=== PATIENT | female | born 1960 | race Caucasian/White ===

== ENCOUNTER 2021-07-26 13:17 | Outpatient (RCR) | payer MEDICARE | END 2021-08-07 | LOC: WCC 13:17 | PROVIDERS: ATTEND Family Medicine Adult Medicine | DX: E11.621 Type 2 diabetes mellitus with foot ulcer (principal); E11.42 Type 2 diabetes mellitus with diabetic polyneuropathy; E11.628 Type 2 diabetes mellitus with other skin complications; L97.511 Non-pressure chronic ulcer of other part of right foot limited to breakdown of skin; L03.031 Cellulitis of right toe; B96.89 Other specified bacterial agents as the cause of diseases classified elsewhere; R60.0 Localized edema; I79.8 Other disorders of arteries, arterioles and capillaries in diseases classified elsewhere; L84 Corns and callosities; I10 Essential (primary) hypertension; I21.9 Acute myocardial infarction, unspecified; I69.998 Other sequelae following unspecified cerebrovascular disease; K21.9 Gastro-esophageal reflux disease without esophagitis; E78.2 Mixed hyperlipidemia; I11.0 Hypertensive heart disease with heart failure; I25.10 Atherosclerotic heart disease of native coronary artery without angina pectoris; E78.01 Familial hypercholesterolemia; I50.22 Chronic systolic (congestive) heart failure; D64.9 Anemia, unspecified; E66.3 Overweight | CPT/HCPCS: 36415; 82948; 87071; 87075; 87205 ==

== ENCOUNTER → 2022-02-15 | Outpatient (CLI) | payer MEDICARE | LOC: RAD 15:50 | PROVIDERS: ATTEND Podiatrist | DX: E11.621 Type 2 diabetes mellitus with foot ulcer (principal); L97.518 Non-pressure chronic ulcer of other part of right foot with other specified severity ==

== ENCOUNTER 2022-02-20 14:46 | Outpatient (RCR) | payer MEDICARE ==
[2022-02-15 16:58] LABS: BASOPHILS % 0.5 % (0.0-1.0); EOSINOPHILS # (AUTO) 0.2 (0.0-0.4); EOSINOPHILS % 2.1 % (0.0-6.0); HEMATOCRIT 40.5 % (34.2-44.1); HEMOGLOBIN 13.1 g/dL (12.0-16.0); LYMPHOCYTES # (AUTO) 1.3 (1.0-3.2); LYMPHOCYTES % 15.8 % (18.0-39.1); MEAN CORPUSCULAR HEMOGLOBIN 31.2 pg (28-32); MEAN CORPUSCULAR HGB CONC 32.3 g/dL (31-35); MEAN CORPUSCULAR VOLUME 96.4 fL (81-99); MONOCYTES # (AUTO) 0.5 (0.2-0.8); MONOCYTES % 6.4 % (4.4-11.3); NEUTROPHILS # (AUTO) 5.9 (2.1-6.9); NEUTROPHILS % 74.8 % (38.7-80.0); PLATELET COUNT 239 x10e3/uL (140-360); RED CELL DISTRIBUTION WIDTH 12.9 % (11.7-14.4)
[2022-02-15 17:18] LABS: ALBUMIN 3.4 g/dL (3.5-5.0); ALBUMIN/GLOBULIN RATIO 0.9 (0.8-2.0); ANION GAP 15.4 mmol/L (8-16); CALCIUM 8.6 mg/dL (8.4-10.2); CREATININE, SERUM 0.91 mg/dL (0.57-1.11); POTASSIUM 4.4 mmol/L (3.5-5.1)
[2022-02-15 17:35] LABS: ERYTHROCYTE SEDIMENTATION RATE 7 mm/hr (0-20)
[~2022-02-20 14:46] MED LIST: LIDOCAINE VISC 2% SOLN 15 ML UDC ONE
== END 2022-03-07 ==
LOC: WCC 14:46
PROVIDERS: ATTEND Podiatrist
DX: E11.621 Type 2 diabetes mellitus with foot ulcer (principal); E11.628 Type 2 diabetes mellitus with other skin complications; E11.42 Type 2 diabetes mellitus with diabetic polyneuropathy; L97.518 Non-pressure chronic ulcer of other part of right foot with other specified severity; I79.8 Other disorders of arteries, arterioles and capillaries in diseases classified elsewhere; I10 Essential (primary) hypertension; I11.0 Hypertensive heart disease with heart failure; D64.9 Anemia, unspecified; I21.9 Acute myocardial infarction, unspecified; I25.10 Atherosclerotic heart disease of native coronary artery without angina pectoris; I50.22 Chronic systolic (congestive) heart failure; I69.998 Other sequelae following unspecified cerebrovascular disease; K21.9 Gastro-esophageal reflux disease without esophagitis; E78.2 Mixed hyperlipidemia; E66.3 Overweight; E78.01 Familial hypercholesterolemia
CPT/HCPCS: 36415; 80053; 82948; 83036; 84134; 85025; 85651; 86141

== ENCOUNTER 2022-04-03 16:13 | Outpatient (RCR) | payer MEDICARE ==
[~2022-04-03 16:13] MED LIST changes: -LIDOCAINE VISC 2% SOLN 15 ML UDC ONE; +LIDOCAINE/PRILOCAINE 2.5-2.5% KIT ONE; +SILVER SULFADIAZINE 50GM CREAM ONE
== END 2022-04-07 ==
LOC: WCC 16:13
PROVIDERS: ATTEND Podiatrist
DX: E11.621 Type 2 diabetes mellitus with foot ulcer (principal); E11.42 Type 2 diabetes mellitus with diabetic polyneuropathy; E11.628 Type 2 diabetes mellitus with other skin complications; L97.518 Non-pressure chronic ulcer of other part of right foot with other specified severity; S91.102A Unspecified open wound of left great toe without damage to nail, initial encounter; I79.8 Other disorders of arteries, arterioles and capillaries in diseases classified elsewhere; I21.9 Acute myocardial infarction, unspecified; I11.0 Hypertensive heart disease with heart failure; I25.10 Atherosclerotic heart disease of native coronary artery without angina pectoris; I50.22 Chronic systolic (congestive) heart failure; I10 Essential (primary) hypertension; D64.9 Anemia, unspecified; E78.01 Familial hypercholesterolemia; E78.2 Mixed hyperlipidemia; E66.3 Overweight; I69.998 Other sequelae following unspecified cerebrovascular disease; K21.9 Gastro-esophageal reflux disease without esophagitis; W27.8XXA Contact with other nonpowered hand tool, initial encounter
CPT/HCPCS: 36415; 82948

== ENCOUNTER 2022-06-17 15:18 | Outpatient (RCR) | payer MEDICARE | END 2022-07-08 | LOC: WCC 15:18 | PROVIDERS: ATTEND Internal Medicine Infectious Disease | DX: E11.621 Type 2 diabetes mellitus with foot ulcer (principal); E11.42 Type 2 diabetes mellitus with diabetic polyneuropathy; E11.628 Type 2 diabetes mellitus with other skin complications; L97.518 Non-pressure chronic ulcer of other part of right foot with other specified severity; I11.0 Hypertensive heart disease with heart failure; I25.10 Atherosclerotic heart disease of native coronary artery without angina pectoris; I21.9 Acute myocardial infarction, unspecified; I69.998 Other sequelae following unspecified cerebrovascular disease; I50.22 Chronic systolic (congestive) heart failure; I10 Essential (primary) hypertension; E78.2 Mixed hyperlipidemia; I79.8 Other disorders of arteries, arterioles and capillaries in diseases classified elsewhere; E78.01 Familial hypercholesterolemia; K21.9 Gastro-esophageal reflux disease without esophagitis; D64.9 Anemia, unspecified; E66.3 Overweight; W27.8XXA Contact with other nonpowered hand tool, initial encounter ==